=== PATIENT | male | born 1980 | race Caucasian/White ===

== ENCOUNTER 2016-11-11 12:06 | Emergency (ER) | payer MEDICAID ==
[~2016-11-11] VITALS: Ht 185.4 cm; Wt 122.0 kg
[2016-11-11] MEDS ORDERED: HALO5 PO (12:17)
[2016-11-11] MEDS ORDERED: DiphenhydrAMINE HCL 50 MG/ML VIAL IM ONE (13:00)
[2016-11-11 14:11] VITALS: BP 132/87
== END 2016-11-11 14:43 | disposition home or self-care (01) ==
LOC: EMS 12:10
DX: G25.9 Extrapyramidal and movement disorder, unspecified (principal); F20.9 Schizophrenia, unspecified
CPT/HCPCS: 96372; 99284; J1200; 99283

== ENCOUNTER 2018-06-28 14:15 | Emergency (ER) | payer MEDICAID ==
[~2018-06-28] VITALS: Ht 185.4 cm; Wt 122.7 kg
[~2018-06-28 14:15] MED LIST: HALO5TAB2 PO
[2018-06-28 15:43] VITALS: BP 122/72
== END 2018-06-28 16:51 | disposition home or self-care (01) ==
LOC: EMS 14:15
DX: B86 Scabies (principal)